=== PATIENT | male | born 1990 | race Caucasian/White ===

== ENCOUNTER 2017-12-22 06:28 | Day surgery (SDC) | payer OTHER ==
[2017-12-22] MEDS ORDERED: SOD CHLORIDE 0.9% 1,000 ML IV (07:00)
[2017-12-22] MEDS ORDERED: CEFAZOLIN 2 GM/50 ML (PMX) 50 ML IVPB (07:00)
[2017-12-22] MEDS ORDERED: LIDOCAINE 2% (SDV) 5 ML INJ (09:33)
[2017-12-22] MEDS ORDERED: PROPOFOL 20 ML (09:33)
[2017-12-22] MEDS ORDERED: FENTAnyl 50 MCG/ML VIAL (09:40)
[2017-12-22] MEDS ORDERED: CEFAZOLIN 1 GM INJ (09:40)
[2017-12-22] MEDS ORDERED: ONDANSETRON 4 MG INJ (09:40)
[2017-12-22] MEDS: HYDROmorphONE 1 MG/5 ML IV SYRINGE IV ×2 (11:16→11:49)
[2017-12-22] MEDS: HYDROCODONE/APAP (7.5/325) TAB PO (12:33)
== END 2017-12-22 13:04 | disposition home or self-care (01) ==
LOC: SDS 06:28
DX: N62 Hypertrophy of breast (principal)
CPT/HCPCS: 19300; 88307

== ENCOUNTER → 2017-12-26 | Day surgery (SDC) | payer OTHER ==
[~2017-12-26] MED LIST: CEFAZOLIN 1 GM INJ; DEXAMETHASONE 4 MG/ML 1 ML INJ; DIPHENHYDRAMINE 50 MG INJ IV; EPHEDrine SULFATE 50 MG/5 ML SYG IV; FENTAnyl 50 MCG/ML VIAL; FENTAnyl 50 MCG/ML VIAL IV; HYDROmorphONE 1 MG/5 ML IV SYRINGE IV; LABETALOL HCL 20MG INJ IV; MEPERIDINE 25 MG INJ IV; METOCLOPRAMIDE 10 MG INJ; METOCLOPRAMIDE 10 MG INJ IV; MIDAZOLAM 1 MG/ML 2 ML INJ; ONDANSETRON 4 MG INJ; OXYCODONE/ACETAMINOPHEN (5/325) TAB PO; PROPOFOL 20 ML
[2017-12-26 11:20] LABS: ADD MAN DIFF? NO
[2017-12-26 11:22] LABS: BASOPHILS % 0.5 % (0.0-2.0); EOSINOPHILS # 0.2 10^3/ul (0.0-0.5); EOSINOPHILS % 1.7 % (0.0-7.0); HEMOGLOBIN 10.1 g/dl (14.0-18.0); LYMPHOCYTES # 3.1 10^3/ul (0.8-2.9); MEAN CORPUSCULAR HGB CONC 32.6 g/dl (32.0-37.0); MEAN CORPUSCULAR VOLUME 85.9 fl (82.0-101.0); MEAN PLATELET VOLUME 11.6 fl (7.4-10.4); MONOCYTE # 0.5 10^3/ul (0.3-0.9); MONOCYTES % 5.6 % (0.0-11.0); NEUTROPHILS % 56.7 % (39.0-77.0); PLATELET COUNT 206 10^3/UL (140-415); RED BLOOD COUNT 3.61 10^6/ul (4.70-6.10); RED CELL DISTRIBUTION WIDTH 12.7 % (11.5-14.5)
[2017-12-26 11:22] LABS: WHITE BLOOD COUNT 8.8 10^3/ul (4.8-10.8)
[2017-12-26] MEDS: HYDROmorphONE 1 MG/5 ML IV SYRINGE IV (12:32)
[2017-12-26] MEDS: ONDANSETRON 4 MG INJ IV (12:32)
[2017-12-26] MEDS: HYDROCODONE/APAP (7.5/325) TAB PO (12:50)
== END | disposition home or self-care (01) ==
LOC: SDS 06:12
DX: L76.32 Postprocedural hematoma of skin and subcutaneous tissue following other procedure (principal); Y83.8 Other surgical procedures as the cause of abnormal reaction of the patient, or of later complication, without mention of misadventure at the time of the procedure
CPT/HCPCS: 10140; 85025